=== PATIENT | male | born 1985 | race Caucasian/White ===

== ENCOUNTER 2019-11-16 06:41 | Emergency (ER) | payer BC, OTHER ==
[~2019-11-16] VITALS: Ht 177.8 cm; Wt 133.0 kg
[2019-11-16] MEDS ORDERED: ketorolac trometh. 30mg/ml inj. IV ONE (07:10)
[2019-11-16] MEDS ORDERED: normal saline 1000ML IV soln IVB ONE (07:10)
[2019-11-16] MEDS ORDERED: morphine 4 MG/ML inj SYRINge IV PRN (07:10)
[2019-11-16] MEDS ORDERED: ondansetron/PF 4mg/2ml inj IV ONE ×2 (07:10→08:50)
[2019-11-16 07:23] LABS: CLARITY,URINE SLIGHTLY CLOUDY (Clear); COLOR,URINE YELLOW (Yellow); GLUCOSE, URINE NEGATIVE (Neg); KETONES,URINE NEGATIVE (Neg); LEUKOCYTE ESTERASE ,URINE NEGATIVE (Neg); NITRITES, URINE NEGATIVE (Neg); OCCULT BLOOD,URINE MODERATE (Neg); PH,URINE 5.5 (4.8-8.0); PROTEIN,URINE TRACE mg/dl (Neg)
[2019-11-16 07:25] LABS: UA COLLECTION TYPE CLN CATCH MIDSTREAM
[2019-11-16 07:26] LABS: BASOPHILS # (AUTO) 0.1 X10'3 (0-0.2); BASOPHILS % (AUTO) 0.7 % (0-1); EOSINOPHILS # (AUTO) 0.2 X10'3 (0-0.9); EOSINOPHILS % (AUTO) 2.3 % (0-6); HEMATOCRIT 40.2 % (42.0-52.0); HEMOGLOBIN 14.2 g/dl (14.0-17.9); LYMPHOCYTES # (AUTO) 3.3 X10'3 (1.1-4.8); LYMPHOCYTES % (AUTO) 40.4 % (21-51); MEAN CORPUSCULAR HEMOGLOBIN 31.8 PG (27.0-31.0); MEAN CORPUSCULAR HGB CONC 35.3 g/dL (33.0-36.5); MEAN CORPUSCULAR VOLUME 90.1 FL (78-98); MEAN PLATELET VOLUME 7.6 FL (7.4-10.4); MONOCYTES # (AUTO) 0.7 X10'3 (0-0.9); MONOCYTES % (AUTO) 8.4 % (2-12); NEUTROPHILS # (AUTO) 3.9 X10'3 (1.8-7.7); NEUTROPHILS % (AUTO) 48.2 % (42-75); PLATELET COUNT 301 X10'3 (140-440); RED BLOOD COUNT 4.46 X10'6 (4.70-6.10); RED CELL DISTRIBUTION WIDTH 12.6 % (11.5-14.5); WHITE BLOOD COUNT 8.1 X10'3 (4.5-11.0)
[2019-11-16 07:30] LABS: MUCUS STRANDS MODERATE /LPF (Neg); SQUAMOUS EPITHELIAL CELL,UR MODERATE /LPF (FEW)
--- NOTE | 2019-11-16 07:30 | NUR ---
pt back from [place]
[2019-11-16 07:31] LABS: HYALINE CASTS 0-3 /LPF (NEGATIVE)
[2019-11-16 07:32] LABS: BACTERIA,URINE 1+ /HPF (Neg); RBC,URINE 20-50 /HPF (0-2); WBC,URINE 0-4 /HPF (0-4)
--- NOTE | 2019-11-16 07:38 | NUR ---
pt up to toilet for second time attempting to have bm
[2019-11-16 07:43] LABS: ALANINE AMINOTRANSFERASE 90 U/L (12-78); ALBUMIN/GLOBULIN RATIO 1.1 (1.1-1.5); ALKALINE PHOSPHATASE 70 IU/L (46-116); ANION GAP 12 (8-16); ASPARTATE AMINO TRANSFERASE 38 U/L (10-37); BILIRUBIN,TOTAL 0.4 MG/DL (0.1-1.0); BLOOD UREA NITROGEN 13 MG/DL (7-18); BUN/CREATININE RATIO 11.1 (5.4-32.0); CALCIUM 8.5 MG/DL (8.5-10.1); CHLORIDE 104 MMOL/L (99-107); CREATININE 1.17 MG/DL (0.60-1.10); GLUCOSE 231 MG/DL (70-104); LIPASE 218 U/L (73-393); POTASSIUM 3.6 MMOL/L (3.5-5.1); SODIUM 139 MMOL/L (135-145); TOTAL CARBON DIOXIDE 23.4 MMOL/L (24-32); TOTAL PROTEIN 7.7 G/DL (6.4-8.2); eGFR 71 ML/MIN
[2019-11-16] MEDS ORDERED: TADA20TA PO (08:23)
[2019-11-16] MEDS ORDERED: KETO10TA2 PO (08:23)
[2019-11-16] MEDS ORDERED: HYDR-4353 PO (08:23)
[2019-11-16] MEDS ORDERED: ONDA4TAB6 PO (08:23)
[2019-11-16 08:56] VITALS: BP 142/85
== END 2019-11-16 08:59 | disposition home or self-care (01) ==
LOC: ER 06:42
DX: N13.2 Hydronephrosis with renal and ureteral calculous obstruction (principal); R11.0 Nausea; R10.31 Right lower quadrant pain; N13.4 Hydroureter; I10 Essential (primary) hypertension; Z79.899 Other long term (current) drug therapy
CPT/HCPCS: 36415; 74176; 80053; 81001; 83690; 85025; 96374; 96375; 99284; J1885; J2270; J2405; J7030

== ENCOUNTER 2024-05-14 10:02 | Emergency (ER) | payer BC ==
[~2024-05-14] VITALS: Ht 177.8 cm; Wt 133.2 kg
[~2024-05-14 10:02] MED LIST: KETO10TA2 PO; ONDA4TAB6 PO; TADA20TA PO
[2024-05-14 11:23] VITALS: BP 123/84; PULSE 90; RESP 16; O2SAT 96
[2024-05-14] MEDS ORDERED: [UNRECOGNIZED DRUG - CODE] PO (14:48)
[2024-05-14] MEDS: acetaminophen 325mg tablet PO ONE (14:51)
[2024-05-14] MEDS: ibuprofen tablet 400 MG TABLET PO ONE (14:51)
[2024-05-14 14:54] VITALS: TEMP 98.2
== END 2024-05-14 14:56 | disposition home or self-care (01) ==
LOC: ER 10:03
DX: R51.9 Headache, unspecified (principal); I10 Essential (primary) hypertension; Z79.899 Other long term (current) drug therapy
CPT/HCPCS: 70450; 99284